=== PATIENT | male | born 2000 | race Hispanic/Latino ===

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

== ENCOUNTER 2021-06-20 09:07 | Inpatient (IN) | payer SELFPAY ==
[~2021-06-20] VITALS: Ht 177.8 cm; Wt 218.2 kg
[2021-06-20] MEDS ORDERED: KETOROLAC TROMETHAMINE 30 MG/ML VIAL IV PRN (09:15)
[2021-06-20 09:38] LABS: BASOPHILS # (AUTO) 0.1 (0.0-0.1); BASOPHILS % 0.6 % (0.0-1.0); EOSINOPHILS # (AUTO) 0.1 (0.0-0.4); EOSINOPHILS % 0.6 % (0.0-6.0); HEMOGLOBIN 20.4 g/dL (14.0-18.0); LYMPHOCYTES # (AUTO) 2.1 (1.0-3.2); LYMPHOCYTES % 17.1 % (18.0-39.1); MEAN CORPUSCULAR HEMOGLOBIN 26.4 pg (28-32); MEAN CORPUSCULAR HGB CONC 31.2 g/dL (31-35); MEAN CORPUSCULAR VOLUME 84.4 fL (81-99); MONOCYTES # (AUTO) 1.1 (0.2-0.8); MONOCYTES % 8.9 % (4.4-11.3); NEUTROPHILS # (AUTO) 8.9 (2.1-6.9); NEUTROPHILS % 72.2 % (38.7-80.0); PLATELET COUNT 293 x10e3/uL (140-360); RED CELL DISTRIBUTION WIDTH 21.9 % (11.7-14.4)
[2021-06-20 09:44] LABS: RED BLOOD COUNT 7.74 x10e6/uL (4.3-5.7)
[2021-06-20] MEDS ORDERED: KETOROLAC TROMETHAMINE 60 MG/2 ML VIAL IM ONE (09:45)
[2021-06-20 09:46] LABS: HEMATOCRIT 65.3 % (38.2-49.6)
[2021-06-20 09:59] LABS: ALBUMIN 2.6 g/dL (3.5-5.0); ALBUMIN/GLOBULIN RATIO 0.5 (0.8-2.0); ANION GAP 16.8 mmol/L (8-16); CALCIUM 9.3 mg/dL (8.4-10.2); CREATININE, SERUM 1.19 mg/dL (0.72-1.25); POTASSIUM 4.8 mmol/L (3.5-5.1)
[2021-06-20] MEDS ORDERED: FUROSEMIDE INJ 10 MG/ML 2 ML VIAL IV NR (13:00)
[2021-06-20] MEDS ORDERED: SODIUM CHLORIDE 0.9% 50ML 50 ML ONE ×2 (13:13→16:44)
[2021-06-20] MEDS ORDERED: IOPAMIDOL 370 MG/ML 200 ML INFUS..BTL INJ ONE ×2 (13:15→16:44)
[2021-06-20] MEDS: ENOXAPARIN SODIUM INJ 100 MG/ML SYR SC SCH (18:43)
[2021-06-20 20:00] VITALS: BP 94/34
[2021-06-20] MEDS ORDERED: ACETAMINOPHEN 325 MG TAB PO PRN (21:00)
[2021-06-20] MEDS ORDERED: GUAIFENESIN/CODEINE 5 ML LIQD PO PRN (21:00)
[2021-06-20 22:25] VITALS: BP 94/32
[2021-06-20 23:11] VITALS: BP 94/34
[2021-06-20] MEDS: GUAIFENESIN 200 MG/10 ML UDC PO PRN (23:18)
[2021-06-21] VITALS (9 sets, daily range): BP systolic 98–116; BP diastolic 64–80
[2021-06-21] MEDS: ENOXAPARIN SODIUM INJ 100 MG/ML SYR SC SCH ×2 (05:21→05:22)
[2021-06-21] MEDS: GUAIFENESIN 200 MG/10 ML UDC PO PRN ×4 (05:37→19:18)
[2021-06-21 12:13] LABS: BASOPHILS # (AUTO) 0.1 (0.0-0.1); BASOPHILS % 0.5 % (0.0-1.0); EOSINOPHILS # (AUTO) 0.2 (0.0-0.4); EOSINOPHILS % 1.4 % (0.0-6.0); HEMOGLOBIN 19.4 g/dL (14.0-18.0); LYMPHOCYTES % 17.9 % (18.0-39.1); MEAN CORPUSCULAR HEMOGLOBIN 26.1 pg (28-32); MEAN CORPUSCULAR HGB CONC 30.3 g/dL (31-35); MONOCYTES % 8.7 % (4.4-11.3); NEUTROPHILS % 70.9 % (38.7-80.0); PLATELET COUNT 295 x10e3/uL (140-360); RED CELL DISTRIBUTION WIDTH 22.2 % (11.7-14.4)
[2021-06-21 12:30] LABS: RED BLOOD COUNT 7.44 x10e6/uL (4.3-5.7)
[2021-06-21] MEDS ORDERED: HEPARIN SOD (PORCINE) 5,000 UNIT/ML VIAL IV NR (12:30)
[2021-06-21 12:50] LABS: FERRITIN 235.59 ng/mL (21.81-274.66)
[2021-06-21] MEDS: HEPARIN 25,000 UNIT 1,500 UNIT in DEXTROSE 5% 250ML 250 ML IV SCH (13:49)
[2021-06-21 13:58] LABS: INR 1.26; PROTHROMBIN TIME 16.1 seconds (11.9-14.5)
[2021-06-21] MEDS: HYDROCODONE/APAP 10MG-325MG TAB PO PRN (19:17)
[2021-06-22] VITALS (11 sets, daily range): BP systolic 54–140; BP diastolic 41–94
[2021-06-22] MEDS: GUAIFENESIN 200 MG/10 ML UDC PO PRN ×4 (00:20→18:07)
[2021-06-22] MEDS ORDERED: BISACODYL 10 MG SUPP PR PRN (08:45)
[2021-06-22] MEDS ORDERED: MAGNESIUM HYDROXIDE 30 ML UDC PO PRN (08:45)
[2021-06-22] MEDS ORDERED: BENZONATATE 100 MG CAP PO PRN (08:45)
[2021-06-22 08:48] LABS: BASOPHILS # (AUTO) 0.1 (0.0-0.1); BASOPHILS % 0.7 % (0.0-1.0); EOSINOPHILS # (AUTO) 0.1 (0.0-0.4); EOSINOPHILS % 0.6 % (0.0-6.0); HEMATOCRIT 62.4 % (38.2-49.6); HEMOGLOBIN 19.3 g/dL (14.0-18.0); LYMPHOCYTES % 17.9 % (18.0-39.1); MEAN CORPUSCULAR HEMOGLOBIN 26.4 pg (28-32); MEAN CORPUSCULAR HGB CONC 30.9 g/dL (31-35); MEAN CORPUSCULAR VOLUME 85.4 fL (81-99); MONOCYTES # (AUTO) 0.8 (0.2-0.8); MONOCYTES % 7.2 % (4.4-11.3); NEUTROPHILS # (AUTO) 8.3 (2.1-6.9); NEUTROPHILS % 72.8 % (38.7-80.0); PLATELET COUNT 289 x10e3/uL (140-360); RED CELL DISTRIBUTION WIDTH 21.7 % (11.7-14.4)
[2021-06-22 08:51] LABS: RED BLOOD COUNT 7.31 x10e6/uL (4.3-5.7)
[2021-06-22 08:57] LABS: ANION GAP 15.6 mmol/L (8-16); CALCIUM 8.8 mg/dL (8.4-10.2); CREATININE, SERUM 0.81 mg/dL (0.72-1.25); POTASSIUM 4.6 mmol/L (3.5-5.1)
[2021-06-22] MEDS: SENNA-S TABLET PO SCH ×2 (09:32→17:05)
[2021-06-22] MEDS: HEPARIN 25,000 UNIT 1,500 UNIT in DEXTROSE 5% 250ML 250 ML IV SCH (10:56)
[2021-06-22] MEDS: HYDROCODONE/APAP 10MG-325MG TAB PO PRN (19:30)
[2021-06-22] MEDS ORDERED: HEPARIN 25,000 UNIT DRIP IV ONE (23:55)
[2021-06-23] MEDS: HEPARIN 25,000 UNIT 1,500 UNIT in DEXTROSE 5% 250ML 250 ML IV SCH ×2
== END 2021-06-23 02:07 | disposition short-term general hospital (02) | DRG 176 ==
LOC: ER 09:13 → ERHOLD 18:04 → MED/SURG2 19:37
PROVIDERS: ADMIT Internal Medicine; ATTEND Internal Medicine
DX: I26.99 Other pulmonary embolism without acute cor pulmonale (principal); I82.210 Acute embolism and thrombosis of superior vena cava; E66.2 Morbid (severe) obesity with alveolar hypoventilation; Z68.44 Body mass index [BMI] 60.0-69.9, adult; Z20.822 Contact with and (suspected) exposure to COVID-19; D45 Polycythemia vera; R16.0 Hepatomegaly, not elsewhere classified; K57.90 Diverticulosis of intestine, part unspecified, without perforation or abscess without bleeding; D63.8 Anemia in other chronic diseases classified elsewhere; G47.33 Obstructive sleep apnea (adult) (pediatric)
CPT/HCPCS: 36415; 71045; 71260; 74177; 76705; 80048; 80053; 81220; 82668; 82728; 83540; 83605; 83690; 83880; 84466; 84484; 85025; 85045; 85610; 85730; 87040; 93005; 93306; 99195; 99284; J1644; J1650; J1885; J1940; Q9967; U0002